=== PATIENT | female | born 1965 ===

== ENCOUNTER 2019-06-26 13:16 | Outpatient (CLI) | payer OTHER ==
--- NOTE | 2019-06-27 15:36 | Diagnostic Imaging Report ---
Indication: Abdominal pain Technique: Blount-scale and duplex images of the upper abdomen were obtained Comparison: none Findings: Gallbladder has been removed. Common bile duct measures mm in diameter. No intrahepatic biliary ductal dilatation. Liver demonstrates diffusely increased echogenicity, consistent with diffuse hepatocellular disease, most likely fatty change. No surface nodularity. No focal abnormality Portal vein and hepatic veins are patent. Pancreas is unremarkable. Spleen is unremarkable. Left kidney measures 12.9 cm in length. Right kidney measures 10 cm length. Both kidneys demonstrate normal echogenicity. There is no hydronephrosis. Cysts are seen in the left kidney . Non-aneurysmal abdominal aorta . Impression: Prior cholecystectomy. Mildly ectatic common bile duct, probably related to such. Correlate with liver function tests Liver demonstrates diffusely increased echogenicity, consistent with diffuse hepatocellular disease, most likely fatty change. No surface nodularity to suggest cirrhosis Incidental finding left renal cysts
== END 2019-06-26 15:16 | disposition home or self-care (01) ==
LOC: ULS 13:16
DX: R10.9 Unspecified abdominal pain (principal); Z90.49 Acquired absence of other specified parts of digestive tract; N28.1 Cyst of kidney, acquired
CPT/HCPCS: 76700